=== PATIENT | female | born 1935 | race Caucasian/White ===

== ENCOUNTER 2020-08-28 13:00 | Inpatient (IN) | payer MEDICARE, OTHER ==
[2020-08-28] MEDS ORDERED: Sodium Chloride 0.9% 100 ML ONE (13:29)
[2020-08-28] MEDS ORDERED: Cefepime 2 GM VIAL ONE (13:29)
[2020-08-28 13:39] LABS: Hemoglobin 13.4 g/dL (12.0-16.0); Mean Corpuscular HGB CONC 33.7 g/dL (32.0-36.0); Mean Corpuscular Hemoglobin 31.8 pg (27.0-31.0); Mean Corpuscular Volume 94.5 fL (78.0-98.0); Mean Platelet Volume 9.8 fL (7.4-10.4); Platelet Count 226 thou/uL (130-400); RBC Distribution Width 12.8 % (11.5-14.5); Red Blood Cell (RBC) Count 4.21 mill/uL (4.20-5.40); White Blood Cell (WBC) Count 14.1 thou/uL (4.8-10.8)
[2020-08-28 13:56] LABS: Band 21 % (5-11); Eosinophils 1 % (0-10); Lymphocytes 4 % (21-51); MDiff Complete? YES; Monocytes 3 % (0-10); Neutrophil 71 % (42-75); Platelet Morphology Comment Appears Adequate; RBC Morphology Normal; Vacuoles SLIGHT
[2020-08-28 14:03] LABS: ALT (SGPT) 47 U/L (8-55); AST (SGOT) 31 U/L (5-34); Albumin 2.9 g/dL (3.4-4.8); Alkaline Phosphatase 155 U/L (40-110); Anion Gap 24 mmol/L (10-20); Bilirubin, Total 2.3 mg/dL (0.2-1.2); Calc. Creatinine Clearance 0 mL/min (70-130); Calcium 8.2 mg/dL (7.8-10.44); Carbon Dioxide 20 mmol/L (23-31); Chloride 101 mmol/L (98-107); Globulin 2.9 g/dL (2.4-3.5); Glucose 119 mg/dL (83-110); Protein, Total 5.8 g/dL (5.8-8.1); Sodium 140 mmol/L (136-145)
[2020-08-28] MEDS ORDERED: Albuterol 200 PUFF (6.7GM INHALER) ONE (14:03)
[2020-08-28 14:14] LABS: BUN (Urea Nitrogen) 137 mg/dL (9.8-20.1)
[2020-08-28] MEDS ORDERED: Vancomycin 1.5 GRAM/300 ML BAG 1.5 GM in Premix Bag 1 BAG IVPB SCH (14:30)
[2020-08-28 14:39] LABS: CKMB 2.9 ng/mL (0-6.6)
[2020-08-28 14:40] LABS: Bilirubin 1+ (Negative); Blood, Urine 1+ (Negative); Clarity Extra Turbid (Clear); Glucose, Urine (Dipstick) Normal (Negative); Ketone, Urine Negative (Negative); Leukocyte 500 Leu/uL (Negative); Nitrite Negative (Negative); Protein, Urine (Dipstick) 70 mg/dL (Neg-Trace); Specific Gravity, Urine 1.017 (1.002-1.036); Urobilinogen 6 mg/dL (Less than 2); WBC/HPF Greater than 50 HPF (0-3); pH, Urine 5.5 (5.0-9.0)
[2020-08-28 14:41] LABS: Bacteria/HPF 3+ HPF (None Seen)
[2020-08-28 15:05] LABS: Actual Bicarbonate (HCO3a) 17.2 mEq/L (22-28); Analyzer IN Cardio ER; Base Excess (BEa) -6.8 mEq/L (-2.0 to +3.0); CO2 Tension 29.9 mmHg (35.0-45.0); Calcium, Ionized (arterial) 1.06 mmol/L (1.12-1.30); Carboxyhemoglobin (COHb) 0.3 gm% (0.0-3.0); Hemoglobin (Hb) 12.4 g/dL (12.0-16.0); O2 Tension (PaO2), arterial 69.8 mmHg (> 60.0); Potassium - ABG Lab 4.38 mmol/L (3.70-5.30); pH, Arterial 7.38 (7.35-7.45)
[2020-08-28 15:06] LABS: ALV-art Gradient 42.555 mmHg (0-20); Puncture Site RRA
[2020-08-28 16:28] LABS: Lactic Acid 1.4 mmol/L (0.5-2.2)
[2020-08-28 17:11] LABS: Creatinine, Urine 164.52 mg/dL (47-110)
[2020-08-28 17:13] LABS: SARS-CoV-2 NAA Rapid Test Not Detected (NotDetected)
[2020-08-28 17:21] LABS: Complement-C4 44.8 mg/dL (Not Available)
[2020-08-28 17:41] LABS: HBSAB Concentration Less than 8.00 mIU/mL; HBSAg Index 0.28 S/CO (0-0.99); Hep B Core Total Ab Non-Reactive (NonReactive); Hep B Core Total Index 0.05 S/CO (0-0.79); Hep B Surf AB Non-Reactive (NonReactive); Hep B Surf Ag Non-Reactive S/CO (NonReactive); Hep C IgG Ab Non-Reactive (NonReactive); Hep C Index 0.06 S/CO (0-0.79)
[2020-08-28] MEDS ORDERED: Vancomycin HCl 250 MG in Sodium Chloride 0.9% 100 ML IVPB SCH (18:00)
[2020-08-28 18:33] LABS: Albumin 2.4 g/dL (3.4-4.8); Anion Gap 22 mmol/L (10-20); Calc. Creatinine Clearance 8 mL/min (70-130); Calcium 7.4 mg/dL (7.8-10.44); Carbon Dioxide 14 mmol/L (23-31); Chloride 107 mmol/L (98-107); Glucose 90 mg/dL (83-110); Phosphorus 4.9 mg/dL (2.3-4.7); Potassium 4.6 mmol/L (3.5-5.1); Sodium 138 mmol/L (136-145)
[2020-08-28 18:46] LABS: BUN (Urea Nitrogen) 129 mg/dL (9.8-20.1); BUN/Creatinine Ratio 20.25
[2020-08-28] MEDS: Sodium Bicarbonate 150 MEQ in Dextrose 5% in Water 1,000 ML IV SCH (20:01)
[2020-08-28] MEDS ORDERED: Vancomycin 1 GM in Premix Bag 1 BAG IVPB SCH (21:00)
[2020-08-28] MEDS: Heparin 5,000 UNITS/ML VIAL SC SCH (21:01)
[2020-08-28] MEDS: Cefepime 0.5 GM in Sodium Chloride 0.9% 100 ML IVPB SCH (21:01)
[2020-08-28] MEDS ORDERED: Fentanyl 100 MCG/2 ML VIAL SLOW IVP SCH (21:30)
[2020-08-29] MEDS: Sodium Bicarbonate 150 MEQ in Dextrose 5% in Water 1,000 ML IV SCH ×2 (05:11→16:44)
[2020-08-29 06:09] LABS: #Eosinphils 0.2 thou/uL (0.0-0.7); #Lymphocytes 0.7 thou/uL (1.20-3.40); #Monocytes 0.3 thou/uL (0.11-0.59); #Neutrophils 9.7 thou/uL (1.40-6.50); %Basophils 0.2 % (0.0-1.0); %Eosinophils 1.8 % (0.0-10.0); %Lymphocytes 6.2 % (21.0-51.0); %Monocytes 2.8 % (0.0-10.0); %Neutrophils 89.1 % (42.0-75.0); Hemoglobin 11.7 g/dL (12.0-16.0); Mean Corpuscular HGB CONC 32.8 g/dL (32.0-36.0); Mean Corpuscular Hemoglobin 31.1 pg (27.0-31.0); Mean Corpuscular Volume 94.9 fL (78.0-98.0); Mean Platelet Volume 9.5 fL (7.4-10.4); Platelet Count 183 thou/uL (130-400); RBC Distribution Width 12.8 % (11.5-14.5); Red Blood Cell (RBC) Count 3.75 mill/uL (4.20-5.40); White Blood Cell (WBC) Count 10.8 thou/uL (4.8-10.8)
[2020-08-29 06:26] LABS: Anion Gap 21 mmol/L (10-20); Calc. Creatinine Clearance 9 mL/min (70-130); Calcium 7.4 mg/dL (7.8-10.44); Carbon Dioxide 17 mmol/L (23-31); Chloride 106 mmol/L (98-107); Glucose 142 mg/dL (83-110); Potassium 4.3 mmol/L (3.5-5.1); Sodium 140 mmol/L (136-145)
[2020-08-29 06:32] LABS: Troponin I 0.043 ng/mL (< 0.028)
[2020-08-29 06:37] LABS: BUN (Urea Nitrogen) 131 mg/dL (9.8-20.1)
[2020-08-29] MEDS ORDERED: Albumin 25% 25 GM/100 ML BOT IVPB SCH (06:45)
[2020-08-29] MEDS ORDERED: Norepinephrine 8 MG/0.9% NS 250 ML IVPB SCH (06:45)
[2020-08-29] MEDS: Sodium Bicarbonate Tab 325 MG TAB PO SCH ×2 (09:00→21:17)
[2020-08-29] MEDS: Heparin 5,000 UNITS/ML VIAL SC SCH ×3 (09:02→21:17)
[2020-08-29] MEDS ORDERED: Morphine 4 MG/ML VIAL ONE (09:25)
[2020-08-29] MEDS ORDERED: Morphine 2 MG/ML VIAL SLOW IVP SCH (09:30)
[2020-08-29] MEDS ORDERED: Heparin 10,000 UNITS/ 10 ML VIAL ONE (11:10)
[2020-08-29] MEDS: Albumin 25% 25 GM/100 ML BOT IVPB SCH ×2 (12:10→17:56)
[2020-08-29] MEDS ORDERED: Cosyntropin 250 MCG VIAL SLOW IVP SCH (12:30)
[2020-08-29] MEDS ORDERED: Vancomycin HCl 250 MG in Sodium Chloride 0.9% 100 ML IVPB SCH (15:00)
[2020-08-29 17:24] LABS: Vancomycin, Random 21.7 ug/mL (See Comment)
[2020-08-29] MEDS: Cefepime 0.5 GM in Sodium Chloride 0.9% 100 ML IVPB SCH (21:19)
[2020-08-30 06:18] LABS: Hemoglobin 10.7 g/dL (12.0-16.0); Mean Corpuscular HGB CONC 35.1 g/dL (32.0-36.0); Mean Corpuscular Hemoglobin 33.4 pg (27.0-31.0); Mean Platelet Volume 9.5 fL (7.4-10.4); Platelet Count 146 thou/uL (130-400); RBC Distribution Width 12.5 % (11.5-14.5); Red Blood Cell (RBC) Count 3.22 mill/uL (4.20-5.40)
[2020-08-30 06:35] LABS: Albumin 3.4 g/dL (3.4-4.8); Anion Gap 19 mmol/L (10-20); BUN (Urea Nitrogen) 92 mg/dL (9.8-20.1); BUN/Creatinine Ratio 22.01; Calc. Creatinine Clearance 13 mL/min (70-130); Calcium 7.8 mg/dL (7.8-10.44); Carbon Dioxide 25 mmol/L (23-31); Chloride 103 mmol/L (98-107); Glucose 95 mg/dL (83-110); Phosphorus 4.5 mg/dL (2.3-4.7); Potassium 3.6 mmol/L (3.5-5.1); Sodium 143 mmol/L (136-145)
[2020-08-30 06:57] LABS: CKMB 1.6 ng/mL (0-6.6)
[2020-08-30] MEDS: Sodium Bicarbonate Tab 325 MG TAB PO SCH ×2 (09:06→21:16)
[2020-08-30] MEDS: Heparin 5,000 UNITS/ML VIAL SC SCH ×3 (09:06→21:16)
[2020-08-30] MEDS ORDERED: Heparin 10,000 UNITS/ 10 ML VIAL ONE (11:08)
[2020-08-30 13:40] VITALS: BMI 29.0
[2020-08-30] MEDS ORDERED: Vancomycin 1 GM in Premix Bag 1 BAG IVPB SCH (13:45)
[2020-08-30] MEDS ORDERED: Vancomycin HCl 750 MG in Sodium Chloride 0.9% 250 ML 250 ML IVPB SCH (13:45)
[2020-08-30] MEDS ORDERED: Vancomycin HCl 1.25 GM in Sodium Chloride 0.9% 250 ML 250 ML IVPB SCH (13:45)
[2020-08-30] MEDS ORDERED: HOLD VANCOMYCIN FOR LEVEL >20 FS SCH (13:45)
[2020-08-30] MEDS ORDERED: Vancomycin HCl 500 MG in Sodium Chloride 0.9% 100 ML IVPB SCH (13:45)
[2020-08-30 16:45] LABS: Vancomycin, Random 11.9 ug/mL (See Comment)
[2020-08-30] MEDS ORDERED: Vancomycin HCl 250 MG in Sodium Chloride 0.9% 100 ML IVPB SCH (17:00)
[2020-08-30] MEDS: Gabapentin 300 MG CAP PO SCH (21:15)
[2020-08-30] MEDS: Metoprolol Tartrate 50 MG TAB PO SCH (21:16)
[2020-08-30] MEDS: Cefepime 0.5 GM in Sodium Chloride 0.9% 100 ML IVPB SCH (21:19)
[2020-08-31 04:03] LABS: Hemoglobin 11.4 g/dL (12.0-16.0); Mean Corpuscular HGB CONC 33.7 g/dL (32.0-36.0); Mean Corpuscular Hemoglobin 32.1 pg (27.0-31.0); Mean Corpuscular Volume 95.1 fL (78.0-98.0); Mean Platelet Volume 9.4 fL (7.4-10.4); Platelet Count 147 thou/uL (130-400); RBC Distribution Width 12.6 % (11.5-14.5); Red Blood Cell (RBC) Count 3.55 mill/uL (4.20-5.40); White Blood Cell (WBC) Count 10.1 thou/uL (4.8-10.8)
[2020-08-31 04:26] LABS: Albumin 3.3 g/dL (3.4-4.8); Anion Gap 18 mmol/L (10-20); BUN (Urea Nitrogen) 67 mg/dL (9.8-20.1); BUN/Creatinine Ratio 22.04; Calc. Creatinine Clearance 18 mL/min (70-130); Calcium 8.5 mg/dL (7.8-10.44); Carbon Dioxide 27 mmol/L (23-31); Chloride 103 mmol/L (98-107); Glucose 93 mg/dL (83-110); Phosphorus 4.5 mg/dL (2.3-4.7); Potassium 3.6 mmol/L (3.5-5.1); Sodium 144 mmol/L (136-145)
[2020-08-31 04:29] LABS: Iron 34 ug/dL (50-170); Iron Binding Capacity, Total 143 mcg/dL (265-497)
[2020-08-31] MEDS: Sodium Bicarbonate Tab 325 MG TAB PO SCH ×2 (08:40→20:18)
[2020-08-31] MEDS: Calcium Carbonate 500 MG ChewTAB PO SCH (08:41)
[2020-08-31] MEDS: Metoprolol Tartrate 50 MG TAB PO SCH ×2 (08:41→22:43)
[2020-08-31] MEDS: Multivitamin W/ Minerals 1 TAB PO SCH (08:41)
[2020-08-31] MEDS: Escitalopram Oxalate 10 mg Tablet PO SCH (08:41)
[2020-08-31] MEDS: Heparin 5,000 UNITS/ML VIAL SC SCH (08:42)
[2020-08-31] MEDS: Apixaban 2.5 MG TAB PO SCH ×2 (08:58→20:19)
[2020-08-31] MEDS ORDERED: methylPREDNISolone Sod Succ 40 MG VIAL IVP SCH (09:00)
[2020-08-31] MEDS ORDERED: Stress 600 With Zinc 1 TAB PO SCH (09:00)
[2020-08-31] MEDS ORDERED: Calcium Carbonate 500 MG TAB PO SCH (09:00)
[2020-08-31] MEDS ORDERED: Fish Oil 1,000 MG CAP PO SCH (09:00)
[2020-08-31] MEDS ORDERED: Vancomycin HCl 250 MG in Sodium Chloride 0.9% 100 ML IVPB SCH (18:00)
[2020-08-31] MEDS ORDERED: Ketorolac Tromethamine 30 MG/ML VIAL IVP SCH (18:45)
[2020-08-31] MEDS: Gabapentin 300 MG CAP PO SCH (20:18)
[2020-08-31] MEDS: Cefepime 0.5 GM, Admixture Fee 1 EACH in Sodium Chloride 0.9% 100 ML IVPB SCH (20:26)
[2020-09-01 07:52] LABS: Hemoglobin 11.3 g/dL (12.0-16.0); Mean Corpuscular HGB CONC 34.2 g/dL (32.0-36.0); Mean Corpuscular Hemoglobin 32.5 pg (27.0-31.0); Mean Platelet Volume 9.4 fL (7.4-10.4); Platelet Count 173 thou/uL (130-400); RBC Distribution Width 12.4 % (11.5-14.5); Red Blood Cell (RBC) Count 3.49 mill/uL (4.20-5.40); White Blood Cell (WBC) Count 10.6 thou/uL (4.8-10.8)
[2020-09-01 08:35] LABS: Anion Gap 17 mmol/L (10-20); BUN (Urea Nitrogen) 96 mg/dL (9.8-20.1); BUN/Creatinine Ratio 35.04; Calc. Creatinine Clearance 20 mL/min (70-130); Calcium 8.2 mg/dL (7.8-10.44); Carbon Dioxide 26 mmol/L (23-31); Chloride 102 mmol/L (98-107); Glucose 116 mg/dL (83-110); Phosphorus 6.1 mg/dL (2.3-4.7); Potassium 3.5 mmol/L (3.5-5.1); Sodium 141 mmol/L (136-145)
[2020-09-01] MEDS: Metoprolol Tartrate 50 MG TAB PO SCH ×2 (11:44→20:19)
[2020-09-01] MEDS: Escitalopram Oxalate 10 mg Tablet PO SCH (11:45)
[2020-09-01] MEDS: Sodium Bicarbonate Tab 325 MG TAB PO SCH ×2 (11:45→20:17)
[2020-09-01] MEDS: Apixaban 2.5 MG TAB PO SCH ×2 (11:45→20:18)
[2020-09-01] MEDS: Multivitamin W/ Minerals 1 TAB PO SCH (11:45)
[2020-09-01] MEDS: Calcium Carbonate 500 MG ChewTAB PO SCH (11:46)
[2020-09-01] MEDS: HYDROcodone/Acetaminophen 7.5/325 mg Tablet PO PRN (12:51)
[2020-09-01] MEDS: Cefepime 0.5 GM, Admixture Fee 1 EACH in Sodium Chloride 0.9% 100 ML IVPB SCH (20:18)
[2020-09-01] MEDS: Gabapentin 300 MG CAP PO SCH (20:18)
[2020-09-01] MEDS: OXcarbazepine 150 MG TAB PO SCH (20:18)
[2020-09-02 04:37] LABS: Hemoglobin 11.9 g/dL (12.0-16.0); Mean Corpuscular HGB CONC 33.5 g/dL (32.0-36.0); Mean Corpuscular Hemoglobin 31.7 pg (27.0-31.0); Mean Corpuscular Volume 94.6 fL (78.0-98.0); Mean Platelet Volume 9.1 fL (7.4-10.4); Platelet Count 225 thou/uL (130-400); RBC Distribution Width 12.4 % (11.5-14.5); Red Blood Cell (RBC) Count 3.76 mill/uL (4.20-5.40)
[2020-09-02 05:14] LABS: Albumin 2.9 g/dL (3.4-4.8); Anion Gap 14 mmol/L (10-20); BUN (Urea Nitrogen) 94 mg/dL (9.8-20.1); BUN/Creatinine Ratio 46.08; Calc. Creatinine Clearance 26 mL/min (70-130); Carbon Dioxide 26 mmol/L (23-31); Chloride 106 mmol/L (98-107); Glucose 90 mg/dL (83-110); Phosphorus 4.5 mg/dL (2.3-4.7); Potassium 3.3 mmol/L (3.5-5.1); Sodium 143 mmol/L (136-145)
[2020-09-02] MEDS ORDERED: Potassium Chloride 20 MEQ TAB PO SCH (07:30)
[2020-09-02] MEDS: Lidocaine 5% Patch TD SCH (08:43)
[2020-09-02] MEDS: Escitalopram Oxalate 10 mg Tablet PO SCH (08:44)
[2020-09-02] MEDS: Multivitamin W/ Minerals 1 TAB PO SCH (08:44)
[2020-09-02] MEDS: Apixaban 2.5 MG TAB PO SCH ×2 (08:44→21:03)
[2020-09-02] MEDS: Calcium Carbonate 500 MG ChewTAB PO SCH (08:44)
[2020-09-02] MEDS: Metoprolol Tartrate 50 MG TAB PO SCH (08:44)
[2020-09-02] MEDS: Sodium Bicarbonate Tab 325 MG TAB PO SCH ×2 (08:44→21:03)
[2020-09-02] MEDS ORDERED: predniSONE 20 MG TAB PO SCH ×2 (09:00→09:15)
[2020-09-02] MEDS ORDERED: Diclofenac 1% 100 GM GEL TP SCH (09:00)
[2020-09-02] MEDS ORDERED: Albumin 25% 25 GM/100 ML BOT IVPB SCH (10:38)
[2020-09-02] MEDS ORDERED: Ergocalciferol 1.25 MG(50,000 UNITS) CAP PO SCH (10:45)
[2020-09-02] MEDS ORDERED: Meloxicam 15 MG TAB PO SCH (12:00)
[2020-09-02] MEDS ORDERED: Hydrocortisone 10 mg Tablet PO SCH (17:00)
[2020-09-02] MEDS: Gabapentin 300 MG CAP PO SCH (21:03)
[2020-09-02] MEDS: Transdermal Patch Removal TOP SCH (21:03)
[2020-09-02] MEDS: OXcarbazepine 150 MG TAB PO SCH (21:03)
[2020-09-02] MEDS: Cefepime 0.5 GM, Admixture Fee 1 EACH in Sodium Chloride 0.9% 100 ML IVPB SCH (21:06)
[2020-09-02] MEDS: HYDROcodone/Acetaminophen 7.5/325 mg Tablet PO PRN (23:51)
[2020-09-03 04:48] LABS: Hemoglobin 10.2 g/dL (12.0-16.0); Mean Corpuscular Hemoglobin 31.9 pg (27.0-31.0); Mean Corpuscular Volume 96.5 fL (78.0-98.0); Mean Platelet Volume 9.3 fL (7.4-10.4); Platelet Count 217 thou/uL (130-400); RBC Distribution Width 12.4 % (11.5-14.5); Red Blood Cell (RBC) Count 3.21 mill/uL (4.20-5.40); White Blood Cell (WBC) Count 7.4 thou/uL (4.8-10.8)
[2020-09-03 05:13] LABS: Albumin 3.2 g/dL (3.4-4.8); Anion Gap 14 mmol/L (10-20); BUN (Urea Nitrogen) 70 mg/dL (9.8-20.1); BUN/Creatinine Ratio 46.05; Calc. Creatinine Clearance 35 mL/min (70-130); Calcium 8.2 mg/dL (7.8-10.44); Carbon Dioxide 27 mmol/L (23-31); Chloride 106 mmol/L (98-107); Glucose 91 mg/dL (83-110); Phosphorus 3.6 mg/dL (2.3-4.7); Potassium 3.5 mmol/L (3.5-5.1); Sodium 143 mmol/L (136-145)
[2020-09-03] MEDS ORDERED: predniSONE 20 MG TAB PO SCH ×2 (08:00)
[2020-09-03] MEDS ORDERED: Apixaban 2.5 MG TAB PO SCH (08:22)
[2020-09-03] MEDS: Lidocaine 5% Patch TD SCH (08:33)
[2020-09-03] MEDS: Sodium Bicarbonate Tab 325 MG TAB PO SCH ×2 (08:34→20:36)
[2020-09-03] MEDS: Multivitamin W/ Minerals 1 TAB PO SCH (08:34)
[2020-09-03] MEDS: Escitalopram Oxalate 10 mg Tablet PO SCH (08:34)
[2020-09-03] MEDS: Calcium Carbonate 500 MG ChewTAB PO SCH (08:34)
[2020-09-03] MEDS ORDERED: Hydrocortisone 10 mg Tablet PO SCH (10:00)
[2020-09-03] MEDS: Apixaban 5 MG TAB PO SCH ×2 (10:33→20:37)
[2020-09-03] MEDS ORDERED: Potassium Chloride 20 MEQ TAB PO SCH (12:15)
[2020-09-03 15:38] LABS: Cytoplasmic (C-ANCA) <1:20 titer (Neg:<1:20); Myeloperoxidase AutoAbs <9.0 U/mL (0.0-9.0); Perinuclear (P-ANCA) <1:20 titer (Neg:<1:20); Proteinase-3 AutoAbs Less than 3.5 U/mL (0.0-3.5)
[2020-09-03] MEDS: HYDROcodone/Acetaminophen 7.5/325 mg Tablet PO PRN ×2 (16:27→20:47)
[2020-09-03 18:46] LABS: ANA Symphony (Qualitative) POSITIVE (Negative); CCP IgG Antibody 0.8 EliAU/mL (<7 Negative); CENP IgG Antibody Less than 0.4 EliAU/mL (<7 Negative); EliA RAS New Method **** NEW METHOD ****; Jo-1 IgG Antibody Less than 0.3 EliAU/mL (<7 Negative); RNP70 IgG Antibody Less than 0.3 EliAU/mL (<7 Negative); Rheumatoid Factor IgM Antibody Less than 0.5 IU/mL (<3.5 Negative); SSA/Ro IgG Antibody Less than 0.3 EliAU/mL (<7 Negative); SSB/La IgG Antibody Less than 0.3 EliAU/mL (<7 Negative); Scleroderma-70 IgG Antibody Less than 0.6 EliAU/mL (<7 Negative); Smith D IgG Antibody 1.1 EliAU/mL (<7 Negative); dsDNA IgG Antibody 0.7 IU/mL (<10 Negative)
[2020-09-03 19:54] LABS: CCP IgG Antibody 0.7 EliAU/mL (<7 Negative); EliA RAS New Method **** NEW METHOD ****
[2020-09-03] MEDS: Cefepime 0.5 GM, Admixture Fee 1 EACH in Sodium Chloride 0.9% 100 ML IVPB SCH (20:37)
[2020-09-03] MEDS: OXcarbazepine 150 MG TAB PO SCH (20:37)
[2020-09-03] MEDS: Gabapentin 300 MG CAP PO SCH (20:37)
[2020-09-03] MEDS: Transdermal Patch Removal TOP SCH (20:38)
[2020-09-04 05:38] LABS: Hemoglobin 11.8 g/dL (12.0-16.0); Mean Corpuscular HGB CONC 33.2 g/dL (32.0-36.0); Mean Corpuscular Hemoglobin 31.8 pg (27.0-31.0); Mean Platelet Volume 8.7 fL (7.4-10.4); Platelet Count 271 thou/uL (130-400); RBC Distribution Width 12.3 % (11.5-14.5); Red Blood Cell (RBC) Count 3.71 mill/uL (4.20-5.40); White Blood Cell (WBC) Count 10.3 thou/uL (4.8-10.8)
[2020-09-04 06:30] LABS: Albumin 3.4 g/dL (3.4-4.8); Anion Gap 14 mmol/L (10-20); BUN (Urea Nitrogen) 52 mg/dL (9.8-20.1); BUN/Creatinine Ratio 44.83; Calc. Creatinine Clearance 46 mL/min (70-130); Calcium 8.5 mg/dL (7.8-10.44); Carbon Dioxide 25 mmol/L (23-31); Chloride 109 mmol/L (98-107); Glucose 97 mg/dL (83-110); Phosphorus 2.4 mg/dL (2.3-4.7); Potassium 3.8 mmol/L (3.5-5.1); Sodium 144 mmol/L (136-145)
[2020-09-04] MEDS: predniSONE 20 MG TAB PO SCH (08:52)
[2020-09-04] MEDS: Apixaban 5 MG TAB PO SCH ×2 (08:52→20:19)
[2020-09-04] MEDS: Escitalopram Oxalate 10 mg Tablet PO SCH (08:52)
[2020-09-04] MEDS: Multivitamin W/ Minerals 1 TAB PO SCH (08:52)
[2020-09-04] MEDS: Calcium Carbonate 500 MG ChewTAB PO SCH (08:52)
[2020-09-04] MEDS: Lidocaine 5% Patch TD SCH (08:52)
[2020-09-04] MEDS: Sodium Bicarbonate Tab 325 MG TAB PO SCH ×2 (08:52→20:19)
[2020-09-04] MEDS: Diclofenac 1% 100 GM GEL TP SCH (08:58)
[2020-09-04] MEDS ORDERED: Non-Formulary Item 1 EACH (Diclofenac Sodium [Diclofenac Sodium 1% Gel] 100 GM Tube) TOP SCH (09:00)
[2020-09-04] MEDS: HYDROcodone/Acetaminophen 7.5/325 mg Tablet PO PRN ×2 (11:20→20:19)
[2020-09-04] MEDS: Gabapentin 300 MG CAP PO SCH (20:19)
[2020-09-04] MEDS: OXcarbazepine 150 MG TAB PO SCH (20:19)
[2020-09-04] MEDS: Transdermal Patch Removal TOP SCH (21:19)
[2020-09-05 07:06] LABS: Albumin 3.3 g/dL (3.4-4.8); Anion Gap 13 mmol/L (10-20); BUN (Urea Nitrogen) 39 mg/dL (9.8-20.1); BUN/Creatinine Ratio 38.61; Calc. Creatinine Clearance 53 mL/min (70-130); Calcium 8.4 mg/dL (7.8-10.44); Carbon Dioxide 25 mmol/L (23-31); Chloride 110 mmol/L (98-107); Glucose 98 mg/dL (83-110); Phosphorus 2.3 mg/dL (2.3-4.7); Potassium 3.6 mmol/L (3.5-5.1); Sodium 144 mmol/L (136-145)
[2020-09-05] MEDS: Apixaban 5 MG TAB PO SCH ×2 (08:56→20:52)
[2020-09-05] MEDS: Calcium Carbonate 500 MG ChewTAB PO SCH (08:56)
[2020-09-05] MEDS: predniSONE 20 MG TAB PO SCH (08:56)
[2020-09-05] MEDS: Sodium Bicarbonate Tab 325 MG TAB PO SCH ×3 (08:59→21:05)
[2020-09-05] MEDS: Multivitamin W/ Minerals 1 TAB PO SCH (08:59)
[2020-09-05] MEDS: HYDROcodone/Acetaminophen 7.5/325 mg Tablet PO PRN ×3 (08:59→20:53)
[2020-09-05] MEDS: Escitalopram Oxalate 10 mg Tablet PO SCH (09:00)
[2020-09-05] MEDS: Lidocaine 5% Patch TD SCH (09:00)
[2020-09-05] MEDS: Diclofenac 1% 100 GM GEL TP SCH (09:55)
[2020-09-05] MEDS: Gabapentin 300 MG CAP PO SCH (20:52)
[2020-09-05] MEDS: OXcarbazepine 150 MG TAB PO SCH (21:05)
[2020-09-05] MEDS: Transdermal Patch Removal TOP SCH (21:41)
[2020-09-06] MEDS: Escitalopram Oxalate 10 mg Tablet PO SCH (07:57)
[2020-09-06] MEDS: Calcium Carbonate 500 MG ChewTAB PO SCH ×2 (07:57→11:06)
[2020-09-06] MEDS: predniSONE 20 MG TAB PO SCH (07:57)
[2020-09-06] MEDS: Multivitamin W/ Minerals 1 TAB PO SCH (07:57)
[2020-09-06] MEDS: Apixaban 5 MG TAB PO SCH ×2 (07:57→19:58)
[2020-09-06] MEDS: Sodium Bicarbonate Tab 325 MG TAB PO SCH ×2 (07:57→19:57)
[2020-09-06] MEDS: Diclofenac 1% 100 GM GEL TP SCH (07:58)
[2020-09-06] MEDS: HYDROcodone/Acetaminophen 7.5/325 mg Tablet PO PRN ×3 (07:59→16:25)
[2020-09-06] MEDS: Lidocaine 5% Patch TD SCH (07:59)
[2020-09-06 09:11] LABS: Hemoglobin 12.3 g/dL (12.0-16.0); Platelet Count 333 thou/uL (130-400)
[2020-09-06] MEDS ORDERED: Acetaminophen 325 MG TAB PO PRN (15:32)
[2020-09-06] MEDS ORDERED: Acetaminophen 325 MG TAB PO SCH (16:00)
[2020-09-06] MEDS: OXcarbazepine 150 MG TAB PO SCH (19:55)
[2020-09-06] MEDS: Gabapentin 300 MG CAP PO SCH (19:57)
[2020-09-06] MEDS: Transdermal Patch Removal TOP SCH (19:58)
[2020-09-07] MEDS: predniSONE 20 MG TAB PO SCH (09:03)
[2020-09-07] MEDS: Apixaban 5 MG TAB PO SCH ×2 (09:03→21:10)
[2020-09-07] MEDS: Calcium Carbonate 500 MG ChewTAB PO SCH (09:04)
[2020-09-07] MEDS: Lidocaine 5% Patch TD SCH (09:04)
[2020-09-07] MEDS: Escitalopram Oxalate 10 mg Tablet PO SCH (09:04)
[2020-09-07] MEDS: DULoxetine 30 MG CAP PO SCH (09:04)
[2020-09-07] MEDS: Sodium Bicarbonate Tab 325 MG TAB PO SCH ×2 (09:05→21:10)
[2020-09-07] MEDS: Multivitamin W/ Minerals 1 TAB PO SCH (09:05)
[2020-09-07] MEDS: Diclofenac 1% 100 GM GEL TP SCH (09:06)
[2020-09-07] MEDS: HYDROcodone/Acetaminophen 7.5/325 mg Tablet PO PRN (18:38)
[2020-09-07] MEDS: OXcarbazepine 150 MG TAB PO SCH (21:05)
[2020-09-07] MEDS: Gabapentin 300 MG CAP PO SCH (21:10)
[2020-09-07] MEDS: Transdermal Patch Removal TOP SCH (21:12)
[2020-09-08 07:14] LABS: Albumin 3.2 g/dL (3.4-4.8); Anion Gap 12 mmol/L (10-20); BUN (Urea Nitrogen) 33 mg/dL (9.8-20.1); BUN/Creatinine Ratio 38.37; Calc. Creatinine Clearance 62 mL/min (70-130); Calcium 8.5 mg/dL (7.8-10.44); Carbon Dioxide 23 mmol/L (23-31); Chloride 112 mmol/L (98-107); Glucose 93 mg/dL (83-110); Phosphorus 2.9 mg/dL (2.3-4.7); Potassium 3.4 mmol/L (3.5-5.1); Sodium 144 mmol/L (136-145)
[2020-09-08] MEDS ORDERED: Potassium Chloride 20 MEQ TAB PO SCH (08:00)
[2020-09-08] MEDS: DULoxetine 30 MG CAP PO SCH (08:07)
[2020-09-08] MEDS: predniSONE 20 MG TAB PO SCH (08:07)
[2020-09-08] MEDS: HYDROcodone/Acetaminophen 7.5/325 mg Tablet PO PRN ×4 (08:07→23:58)
[2020-09-08] MEDS: Apixaban 5 MG TAB PO SCH ×2 (08:07→21:42)
[2020-09-08] MEDS: Escitalopram Oxalate 10 mg Tablet PO SCH (08:08)
[2020-09-08] MEDS: Multivitamin W/ Minerals 1 TAB PO SCH (08:08)
[2020-09-08] MEDS: Sodium Bicarbonate Tab 325 MG TAB PO SCH ×2 (08:08→22:06)
[2020-09-08] MEDS: Lidocaine 5% Patch TD SCH (10:20)
[2020-09-08] MEDS: Diclofenac 1% 100 GM GEL TP SCH (10:54)
[2020-09-08] MEDS: Calcium Carbonate 500 MG ChewTAB PO SCH (10:57)
[2020-09-08] MEDS: Gabapentin 300 MG CAP PO SCH (21:42)
[2020-09-08] MEDS: Transdermal Patch Removal TOP SCH (21:47)
[2020-09-08] MEDS: OXcarbazepine 150 MG TAB PO SCH (22:06)
[2020-09-09 08:07] LABS: #Eosinphils 0.1 thou/uL (0.0-0.7); #Lymphocytes 1.7 thou/uL (1.20-3.40); #Monocytes 0.9 thou/uL (0.11-0.59); %Basophils 0.5 % (0.0-1.0); %Eosinophils 1.5 % (0.0-10.0); %Lymphocytes 17.8 % (21.0-51.0); %Monocytes 8.7 % (0.0-10.0); %Neutrophils 71.6 % (42.0-75.0); Hemoglobin 12.5 g/dL (12.0-16.0); Mean Corpuscular HGB CONC 33.4 g/dL (32.0-36.0); Mean Corpuscular Volume 95.9 fL (78.0-98.0); Platelet Count 320 thou/uL (130-400); RBC Distribution Width 12.5 % (11.5-14.5); Red Blood Cell (RBC) Count 3.92 mill/uL (4.20-5.40); White Blood Cell (WBC) Count 9.8 thou/uL (4.8-10.8)
[2020-09-09 08:25] LABS: Anion Gap 12 mmol/L (10-20); BUN (Urea Nitrogen) 31 mg/dL (9.8-20.1); Calc. Creatinine Clearance 60 mL/min (70-130); Calcium 8.4 mg/dL (7.8-10.44); Carbon Dioxide 25 mmol/L (23-31); Chloride 112 mmol/L (98-107); Glucose 92 mg/dL (83-110); Potassium 3.9 mmol/L (3.5-5.1); Sodium 145 mmol/L (136-145)
[2020-09-09] MEDS: Multivitamin W/ Minerals 1 TAB PO SCH (08:48)
[2020-09-09] MEDS: predniSONE 20 MG TAB PO SCH (08:48)
[2020-09-09] MEDS: Sodium Bicarbonate Tab 325 MG TAB PO SCH ×2 (08:48→21:55)
[2020-09-09] MEDS: Calcium Carbonate 500 MG ChewTAB PO SCH (08:49)
[2020-09-09] MEDS: Apixaban 5 MG TAB PO SCH ×2 (08:49→21:56)
[2020-09-09] MEDS: Escitalopram Oxalate 10 mg Tablet PO SCH (08:49)
[2020-09-09] MEDS: Gabapentin 100 MG CAP PO SCH (08:49)
[2020-09-09] MEDS: DULoxetine 30 MG CAP PO SCH (08:49)
[2020-09-09] MEDS: Diclofenac 1% 100 GM GEL TP SCH (08:49)
[2020-09-09] MEDS: Lidocaine 5% Patch TD SCH (08:57)
[2020-09-09] MEDS: HYDROcodone/Acetaminophen 7.5/325 mg Tablet PO PRN ×2 (08:58→18:13)
[2020-09-09] MEDS ORDERED: Ergocalciferol 1.25 MG(50,000 UNITS) CAP PO SCH (09:00)
[2020-09-09 09:18] LABS: Hemoglobin 12.7 g/dL (12.0-16.0); Platelet Count 355 thou/uL (130-400)
[2020-09-09] MEDS: Gabapentin 300 MG CAP PO SCH (21:56)
[2020-09-09] MEDS: Transdermal Patch Removal TOP SCH (21:57)
[2020-09-09] MEDS: OXcarbazepine 150 MG TAB PO SCH (21:58)
[2020-09-10] MEDS: Lidocaine 5% Patch TD SCH (08:34)
[2020-09-10] MEDS: Sodium Bicarbonate Tab 325 MG TAB PO SCH ×2 (08:36→21:33)
[2020-09-10] MEDS: predniSONE 20 MG TAB PO SCH (08:36)
[2020-09-10] MEDS: Gabapentin 100 MG CAP PO SCH (08:36)
[2020-09-10] MEDS: HYDROcodone/Acetaminophen 7.5/325 mg Tablet PO PRN ×2 (08:37→18:31)
[2020-09-10] MEDS: Escitalopram Oxalate 10 mg Tablet PO SCH (08:37)
[2020-09-10] MEDS: Apixaban 5 MG TAB PO SCH ×2 (08:37→21:33)
[2020-09-10] MEDS: Calcium Carbonate 500 MG ChewTAB PO SCH (08:38)
[2020-09-10] MEDS: Diclofenac 1% 100 GM GEL TP SCH (08:38)
[2020-09-10] MEDS: DULoxetine 30 MG CAP PO SCH (08:38)
[2020-09-10] MEDS: Multivitamin W/ Minerals 1 TAB PO SCH (08:38)
[2020-09-10] MEDS: Gabapentin 300 MG CAP PO SCH (21:33)
[2020-09-10] MEDS: OXcarbazepine 150 MG TAB PO SCH (21:36)
[2020-09-10] MEDS: Transdermal Patch Removal TOP SCH (22:15)
[2020-09-11] MEDS: HYDROcodone/Acetaminophen 7.5/325 mg Tablet PO PRN (07:43)
[2020-09-11] MEDS: predniSONE 20 MG TAB PO SCH (08:48)
[2020-09-11] MEDS: Apixaban 5 MG TAB PO SCH (08:50)
[2020-09-11] MEDS: Sodium Bicarbonate Tab 325 MG TAB PO SCH (08:51)
[2020-09-11] MEDS: Gabapentin 100 MG CAP PO SCH (08:52)
[2020-09-11] MEDS: Escitalopram Oxalate 10 mg Tablet PO SCH (08:52)
[2020-09-11] MEDS: Multivitamin W/ Minerals 1 TAB PO SCH (08:52)
[2020-09-11] MEDS: DULoxetine 30 MG CAP PO SCH (08:54)
[2020-09-11] MEDS: Diclofenac 1% 100 GM GEL TP SCH ×2 (08:55→09:07)
[2020-09-11] MEDS: Calcium Carbonate 500 MG ChewTAB PO SCH (08:57)
[2020-09-11] MEDS: Lidocaine 5% Patch TD SCH (09:02)
[2020-09-11 12:04] VITALS: BP 99/63; TEMP 98.4
== END 2020-09-11 15:07 | DRG 871 ==
LOC: SUATTDRO 13:00 → ERS 13:00 → CCU 15:08 → ERS 15:14 → 2NO 08-31 15:45 → T4-B 09-04 21:08
PROVIDERS: ADMIT Internal Medicine; ATTEND Family Medicine
PROC: 06HY33Z Insertion of Infusion Device into Lower Vein, Percutaneous Approach (ICD-10-PCS; 2020-08-28)
PROC: 5A1D70Z Performance of Urinary Filtration, Intermittent, Less than 6 Hours Per Day (ICD-10-PCS; principal; 2020-08-29)
DX: A41.51 Sepsis due to Escherichia coli [E. coli] (principal); R65.21 Severe sepsis with septic shock; J96.00 Acute respiratory failure, unspecified whether with hypoxia or hypercapnia; N17.9 Acute kidney failure, unspecified; M48.56XA Collapsed vertebra, not elsewhere classified, lumbar region, initial encounter for fracture; N30.00 Acute cystitis without hematuria; E87.4 Mixed disorder of acid-base balance; M35.1 Other overlap syndromes; Z66 Do not resuscitate; Z20.822 Contact with and (suspected) exposure to COVID-19; G89.4 Chronic pain syndrome; I48.0 Paroxysmal atrial fibrillation; F41.9 Anxiety disorder, unspecified; F32.9 Major depressive disorder, single episode, unspecified; R79.89 Other specified abnormal findings of blood chemistry; L97.519 Non-pressure chronic ulcer of other part of right foot with unspecified severity; E86.0 Dehydration; I73.9 Peripheral vascular disease, unspecified; E88.09 Other disorders of plasma-protein metabolism, not elsewhere classified; I08.1 Rheumatic disorders of both mitral and tricuspid valves; E66.9 Obesity, unspecified; D63.1 Anemia in chronic kidney disease; R56.9 Unspecified convulsions; I50.9 Heart failure, unspecified; E86.9 Volume depletion, unspecified; N18.9 Chronic kidney disease, unspecified; Z88.1 Allergy status to other antibiotic agents; Z79.899 Other long term (current) drug therapy; Z79.01 Long term (current) use of anticoagulants; Z88.6 Allergy status to analgesic agent; Z88.5 Allergy status to narcotic agent; Z88.8 Allergy status to other drugs, medicaments and biological substances; Z90.49 Acquired absence of other specified parts of digestive tract; Z86.73 Personal history of transient ischemic attack (TIA), and cerebral infarction without residual deficits; Z68.29 Body mass index [BMI] 29.0-29.9, adult
CPT/HCPCS: 0240U; 36415; 36556; 36600; 51702; 71045; 74176; 78306; 80048; 80053; 80069; 80202; 80400; 81003; 81015; 82306; 82550; 82553; 82565; 82570; 82728; 82805; 83520; 83540; 83550; 83605; 83735; 83880; 84156; 84300; 84443; 84484; 84540; 85014; 85018; 85025; 85027; 85049; 85379; 85652; 86038; 86140; 86160; 86200; 86225; 86235; 86256; 86704; 86706; 86803; 87040; 87077; 87086; 87186; 87340; 87635; 90935; 93005; 93010; 93306; 93923; 94660; 94664; 96365; 96366; 96367; 99292; A9503; G0257; J0692; J0834; J1644; J1885; J2270; J2920; J3010; J3370; J3490; J7070; J7512; P9047; U0003; U0005

== ENCOUNTER 2021-08-16 13:57 | Outpatient (CLI) | payer MEDICARE, OTHER | END 2021-08-16 13:58 | disposition home or self-care (01) | LOC: MRI 13:57 | PROVIDERS: ATTEND Internal Medicine | DX: R51.9 Headache, unspecified (principal); G60.9 Hereditary and idiopathic neuropathy, unspecified; R42 Dizziness and giddiness; I67.89 Other cerebrovascular disease | CPT/HCPCS: 70551 ==

== ENCOUNTER 2021-09-13 13:45 | Inpatient (IN) | payer MEDICARE, OTHER ==
[2021-09-13 20:50] VITALS: BMI 27.3
[2021-09-20 03:55] VITALS: TEMP 97.4
[2021-09-20 13:23] VITALS: BP 115/75
== END 2021-09-20 16:43 | DRG 543 ==
LOC: ERS 13:45 → T4-B 17:47 → OBSVTOIN 09-14 10:48
PROVIDERS: ADMIT Family Medicine; ATTEND Internal Medicine
DX: M48.56XA Collapsed vertebra, not elsewhere classified, lumbar region, initial encounter for fracture (principal); N30.00 Acute cystitis without hematuria; M48.54XA Collapsed vertebra, not elsewhere classified, thoracic region, initial encounter for fracture; Z20.822 Contact with and (suspected) exposure to COVID-19; G43.909 Migraine, unspecified, not intractable, without status migrainosus; Z60.2 Problems related to living alone; N20.0 Calculus of kidney; I73.9 Peripheral vascular disease, unspecified; K59.00 Constipation, unspecified; Z88.6 Allergy status to analgesic agent; Z88.5 Allergy status to narcotic agent; Z88.8 Allergy status to other drugs, medicaments and biological substances; Z87.440 Personal history of urinary (tract) infections; Z79.899 Other long term (current) drug therapy; Z79.52 Long term (current) use of systemic steroids; Z90.49 Acquired absence of other specified parts of digestive tract; Z90.89 Acquired absence of other organs; Z98.890 Other specified postprocedural states
CPT/HCPCS: 36415; 72146; 72148; 74177; 80048; 80053; 81003; 81015; 83690; 85025; 87040; 87077; 87086; 87186; 96374; 96375; 96376; G0378; J0696; J1885; J2270; J7050; U0003; U0005

== ENCOUNTER 2021-10-26 13:27 | Outpatient (CLI) | payer MEDICARE, OTHER | END 2021-10-26 13:28 | disposition home or self-care (01) | LOC: TBSIIMAG 13:27 | PROVIDERS: ATTEND Neurological Surgery | DX: S22.009A Unspecified fracture of unspecified thoracic vertebra, initial encounter for closed fracture (principal) | CPT/HCPCS: 72070; 72100 ==